=== PATIENT | male | born 1940 | race Caucasian/White ===

== ENCOUNTER → 2018-08-30 | Outpatient (CLI) | payer MEDICARE ==
[~2018-08-30] MED LIST: ASPI81CH PO; ATOR10 PO; HYDMOR2 PO; IBUP600 PO; IRBE150 PO; METF500C PO; [UNRECOGNIZED DRUG - CODE] PO
== END | disposition home or self-care (01) ==
LOC: LAB SHORT 11:22 → PLD 11:22
DX: D48.5 Neoplasm of uncertain behavior of skin (principal)
CPT/HCPCS: 88304

== ENCOUNTER 2020-04-03 11:58 | Day surgery (SDC) | payer MEDICARE ==
[~2020-04-03] VITALS: Ht 175.3 cm; Wt 72.0 kg
[~2020-04-03 11:58] MED LIST changes: +AMAN100 PO; +CARBLEV25 SL; +EXTRA PAIN REL1 EAC2 PO; +METF500 PO; +Rapaflo4 MG PO; +TADA10TA
== END 2020-04-03 13:25 | disposition home or self-care (01) ==
LOC: ORSCSDS 11:58
PROVIDERS: Anesthesiology
PROC: 3E0R33Z Introduction of Anti-inflammatory into Spinal Canal, Percutaneous Approach (ICD-10-PCS; principal; 2020-04-03 13:00)
DX: M51.16 Intervertebral disc disorders with radiculopathy, lumbar region (principal); E11.9 Type 2 diabetes mellitus without complications; E78.00 Pure hypercholesterolemia, unspecified; G20 Parkinson's disease; Z79.84 Long term (current) use of oral hypoglycemic drugs; Z79.899 Other long term (current) drug therapy
CPT/HCPCS: J1040

== ENCOUNTER 2022-06-10 11:05 | Day surgery (SDC) | payer MEDICARE ==
[~2022-06-10] VITALS: Ht 172.7 cm; Wt 67.9 kg
[~2022-06-10 11:05] MED LIST changes: +CEPH500 PO
--- NOTE | 2022-06-10 11:48 | NUR ---
06/10/22 1148 Toya Fontanez AT [address] AT 1147
[2022-06-10 13:20] VITALS: BP 150/86
== END 2022-06-10 13:40 | disposition home or self-care (01) ==
LOC: ORSCSDS 11:05
PROVIDERS: Ophthalmology
PROC: 08DJ3ZZ Extraction of Right Lens, Percutaneous Approach (ICD-10-PCS; principal; 2022-06-10 12:30)
DX: H25.13 Age-related nuclear cataract, bilateral (principal); H52.201 Unspecified astigmatism, right eye; I10 Essential (primary) hypertension; R73.03 Prediabetes; G20 Parkinson's disease; Z79.84 Long term (current) use of oral hypoglycemic drugs; Z79.899 Other long term (current) drug therapy
CPT/HCPCS: 82947; J2001; J2250; J3010; J3301; J7040; V2632

== ENCOUNTER 2022-06-29 14:11 | Day surgery (SDC) | payer MEDICARE ==
[~2022-06-29] VITALS: Ht 170.2 cm; Wt 67.5 kg
[2022-06-29 16:26] VITALS: BP 157/76
--- NOTE | 2022-06-29 16:51 | NUR ---
06/29/22 1651 Jayla Wilkerson AND BOBBI COLVIN STUDENT NURSES ASSISTING WITH CARE.
== END 2022-06-29 16:48 | disposition home or self-care (01) ==
LOC: ORSCSDS 14:11
PROVIDERS: Ophthalmology
PROC: 08RK3JZ Replacement of Left Lens with Synthetic Substitute, Percutaneous Approach (ICD-10-PCS; principal; 2022-06-29 15:30)
DX: E11.36 Type 2 diabetes mellitus with diabetic cataract (principal); H25.12 Age-related nuclear cataract, left eye; H52.202 Unspecified astigmatism, left eye; Z96.1 Presence of intraocular lens; G20 Parkinson's disease; Z79.84 Long term (current) use of oral hypoglycemic drugs; Z79.899 Other long term (current) drug therapy
CPT/HCPCS: 82947; J2250; J3010; J3301; J7040; V2632